=== PATIENT | male | born 1985 | race Caucasian/White ===

== ENCOUNTER 2019-08-08 05:08 | Emergency (ER) | payer MEDICAID ==
[~2019-08-08] VITALS: Ht 193 cm; Wt 95.5 kg
[~2019-08-08 05:08] MED LIST: CLIN-97 PO; DIAZ10TA PO; HYDR1TAB PO; NO HOME MEDS; OMEP-84 PO; ZOF4T PO
[2019-08-08 05:12] VITALS: BP 133/76
[2019-08-08] MEDS ORDERED: AMOX-101 PO (05:28)
[2019-08-08] MEDS ORDERED: bupivacaine 0.25%/epinephrine 1:200,000 inj (contains preserv. MDV) IJ ONE ×2 (05:30→05:40)
[2019-08-08] MEDS ORDERED: IBUP-1986 PO (05:46)
== END 2019-08-08 06:08 | disposition home or self-care (01) ==
LOC: ER 05:09
DX: K08.89 Other specified disorders of teeth and supporting structures (principal); F41.9 Anxiety disorder, unspecified; Z79.2 Long term (current) use of antibiotics; Z79.899 Other long term (current) drug therapy
CPT/HCPCS: 64400; 93005; 99284

== ENCOUNTER 2019-12-05 18:50 | Emergency (ER) | payer MEDICAID ==
[~2019-12-05] VITALS: Ht 193 cm; Wt 90.1 kg
[~2019-12-05 18:50] MED LIST changes: +IBUP-1986 PO
[2019-12-05 18:55] VITALS: BP 140/88
[2019-12-05] MEDS ORDERED: HYDROcodone/acetaminophen 5mg/325mg tablet PO ONE (19:55)
[2019-12-05] MEDS ORDERED: penicillin V potassium 500mg tablet PO ONE (19:55)
[2019-12-05] MEDS ORDERED: ondansetron 4mg rapidly disintigrating tab PO ONE (19:55)
[2019-12-05] MEDS ORDERED: PENI500T2 PO (19:56)
== END 2019-12-05 20:25 | disposition home or self-care (01) ==
LOC: ER 18:52
DX: K02.9 Dental caries, unspecified (principal); F41.9 Anxiety disorder, unspecified; Z79.2 Long term (current) use of antibiotics; Z79.899 Other long term (current) drug therapy
CPT/HCPCS: 99284

== ENCOUNTER 2020-11-06 01:33 | Emergency (ER) | payer MEDICAID | END 2020-11-06 03:04 | disposition left against medical advice (07) | LOC: ER 01:33 | DX: R11.10 Vomiting, unspecified (principal); Z53.21 Procedure and treatment not carried out due to patient leaving prior to being seen by health care provider ==

== ENCOUNTER 2021-04-18 05:00 | Emergency (ER) | payer MEDICAID ==
[~2021-04-18] VITALS: Ht 185.4 cm; Wt 75.0 kg
[2021-04-18 05:05] VITALS: BP 153/84
[2021-04-18] MEDS ORDERED: azithromycin 250mg tablet PO ONE (05:25)
[2021-04-18] MEDS ORDERED: CEFTRIAXONE 500 MG VIAL IM ONE (05:25)
[2021-04-18] MEDS ORDERED: CefTRIAXone 1000mg IM Kit (w/lidocaine diluent) IM ONE (05:30)
== END 2021-04-18 05:48 | disposition home or self-care (01) ==
LOC: ER 05:01
DX: Z20.2 Contact with and (suspected) exposure to infections with a predominantly sexual mode of transmission (principal); R30.9 Painful micturition, unspecified; F41.9 Anxiety disorder, unspecified; Z79.2 Long term (current) use of antibiotics; Z79.899 Other long term (current) drug therapy
CPT/HCPCS: 96372; 99283; J0696